=== PATIENT | male | born 1990 | race African-American/Black ===

== ENCOUNTER 2018-09-07 21:21 | Emergency (ER) | payer OTHER ==
[2018-09-07 21:21] VITALS: BP 136/74
--- NOTE | 2018-09-07 21:28 | ED.ADGEN ---
Adult General Chief Complaint Chief Complaint "..I don't have any symptoms.. but I ve been having sex with my girlfriend..Ruby Musa.. and she has Trichomonas... 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 Patient denies any penile discharge. Patient denies any history immunosuppression. No recent travel. No over seas recent deployments. Pt. up-to-date with vaccinations. Patient normally healthy. Patient gets yearly HIV testing. All previous tested been negative. Pt. requesting treatment for possible STD so that they do not reinfect each other during sexual intercourse. Review of Systems Review of Systems Constitutional: Denies fever or chills [] Eyes: Denies change in visual acuity, redness, or eye pain [] HENT: Denies nasal congestion or sore throat [] Respiratory: Denies cough or shortness of breath [] Cardiovascular: No additional information not addressed in HPI [] GI: Denies abdominal pain, nausea, vomiting, bloody stools or diarrhea [] : Denies dysuria or hematuria [] Musculoskeletal: Denies back pain or joint pain [] Integument: Denies rash or skin lesions [] Neurologic: Denies headache, focal weakness or sensory changes [] Endocrine: Denies polyuria or polydipsia [] All other systems were reviewed and found to be within normal limits, except as documented in this note. Family History Family History Noncontributory Current Medications Current Medications Current Medications Medications (Trade) Dose Ordered Sig/Bing Start Time Stop Time Status Last Admin Dose Admin Azithromycin (Zithromax) 1,000 mg 1X ONCE 09/07/18 22:00 09/07/18 22:01 DC 09/07/18 22:29 1,000 MG Ceftriaxone Sodium (Rocephin Im) 1 gm 1X ONCE 09/07/18 22:00 09/07/18 22:01 DC 09/07/18 22:30 1 GM Lidocaine HCl 20 ml 1X ONCE 09/07/18 23:00 09/07/18 23:01 DC Metronidazole (Flagyl) 2,000 mg 1X ONCE 09/07/18 22:00 09/07/18 22:01 DC 09/07/18 22:29 2,000 MG Ondansetron HCl (Zofran Odt) 8 mg 1X ONCE 09/07/18 22:00 09/07/18 22:01 DC 09/07/18 22:30 8 MG Allergies Allergies Allergies Coded Allergies Type Severity Reaction Last Updated Verified No Known Drug Allergies 09/07/18 No Physical Exam Physical Exam Constitutional: Well developed, well nourished, no acute distress, non-toxic appearance. [] HENT: Normocephalic, atraumatic, bilateral external ears normal, oropharynx moist, no oral exudates, nose normal. [] Eyes: PERRLA, EOMI, conjunctiva normal, no discharge. [] Neck: Normal range of motion, no tenderness, supple, no stridor. [] Cardiovascular:Heart rate regular rhythm, no murmur [] Lungs & Thorax: Bilateral breath sounds clear to auscultation [] Abdomen: Bowel sounds normal, soft, no tenderness, no masses, no pulsatile masses. [] Skin: Warm, dry, no erythema, no rash. [] Back: No tenderness, no CVA tenderness. [] Extremities: No tenderness, no cyanosis, no clubbing, ROM intact, no edema. [] Neurologic: Alert and oriented X 3, normal motor function, normal sensory function, no focal deficits noted. [] Psychologic: Affect normal, judgement normal, mood normal. [] Current Patient Data Lab Results Laboratory Tests Test 09/07/18 21:45 Urine Collection Type Unknown Urine Color Yellow Urine Clarity Clear Urine pH 6.5 Urine Specific Energy 1.025 Urine Protein Neg (NEG-TRACE) Urine Glucose (UA) Neg mg/dL (NEG) Urine Ketones (Stick) Trace mg/dL (NEG) Urine Blood Neg (NEG) Urine Nitrite Neg (NEG) Urine Bilirubin Neg (NEG) Urine Urobilinogen Dipstick 0.2 mg/dL (0.2 mg/dL) Urine Leukocyte Esterase Neg (NEG) Urine RBC 0 /HPF (0-2) Urine WBC Occ /HPF (0-4) Urine Squamous Epithelial Cells Occ /LPF Urine Bacteria 0 /HPF (0-FEW) Urine Mucus Slight /LPF EKG EKG [] Radiology/Procedures Radiology/Procedures [] Course & Med Decision Making Course & Med Decision Making Pertinent Labs and Imaging studies reviewed. (See chart for details). Patient follow-up pending cultures. Patient follow-up primary care. Patient take Keflex 500 mg 3 times a day. Patient return if any concerns. Should have retesting to ensure clearing of infection. [] Final Impression Final Impression 1. Exposure to STD[] Dragon Disclaimer Dragon Disclaimer This electronic medical record was generated, in whole or in part, using a voice recognition dictation system. Discharge Summary Visit Information Final Diagnosis Problems Medical Problems: (1) STD exposure Status: Acute Brief Hospital Course Allergies Allergies Coded Allergies Type Severity Reaction Last Updated Verified No Known Drug Allergies 09/07/18 No Lab Results Laboratory Tests Test 09/07/18 21:45 Urine Collection Type Unknown Urine Color Yellow Urine Clarity Clear Urine pH 6.5 Urine Specific Energy 1.025 Urine Protein Neg (NEG-TRACE) Urine Glucose (UA) Neg mg/dL (NEG) Urine Ketones (Stick) Trace mg/dL (NEG) Urine Blood Neg (NEG) Urine Nitrite Neg (NEG) Urine Bilirubin Neg (NEG) Urine Urobilinogen Dipstick 0.2 mg/dL (0.2 mg/dL) Urine Leukocyte Esterase Neg (NEG) Urine RBC 0 /HPF (0-2) Urine WBC Occ /HPF (0-4) Urine Squamous Epithelial Cells Occ /LPF Urine Bacteria 0 /HPF (0-FEW) Urine Mucus Slight /LPF Brief Hospital Course 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 Discharge Information Condition at Discharge: Stable Disposition/Orders: D/C to Home Dischare Medications Current Medications Ceftriaxone Sodium (Rocephin Im) 1 gm 1X ONCE IM Last administered on 09/07/18at 22:30; Admin Dose 1 GM; Start 09/07/18 at 22:00; Stop 09/07/18 at 22:01; Status DC Ondansetron HCl (Zofran Odt) 8 mg 1X ONCE PO Last administered on 09/07/18at 22:30; Admin Dose 8 MG; Start 09/07/18 at 22:00; Stop 09/07/18 at 22:01; Status DC Azithromycin (Zithromax) 1,000 mg 1X ONCE PO Last administered on 09/07/18at 22:29; Admin Dose 1,000 MG; Start 09/07/18 at 22:00; Stop 09/07/18 at 22:01; Status DC Metronidazole (Flagyl) 2,000 mg 1X ONCE PO Last administered on 09/07/18at 22:29; Admin Dose 2,000 MG; Start 09/07/18 at 22:00; Stop 09/07/18 at 22:01; Status DC Lidocaine HCl 20 ml STK-MED ONCE .ROUTE ; Start 09/07/18 at 22:32; Stop 09/07/18 at 22:33; Status DC Lidocaine HCl 20 ml 1X ONCE IJ ; Start 09/07/18 at 23:00; Stop 09/07/18 at 23:01; Status DC Active Scripts Active Keflex (Cephalexin) 500 Mg Capsule 500 Mg PO TID Joseph Disclaimer This chart was dictated in whole or in part using Voice Recognition software in a busy, high-work load, and often noisy Emergency Department environment. It may contain unintended and wholly unrecognized errors or omissions. LINDA SANDHU MD September 07, 2018 21:28
[2018-09-07] MEDS ORDERED: CEPH-264 PO (21:34)
[2018-09-07] MEDS ORDERED: cefTRIAXone IM 1 GM VIAL IM ONE (22:00)
[2018-09-07] MEDS ORDERED: ONDANSETRON ODT 4 MG TAB.RAPDIS PO ONE (22:00)
[2018-09-07] MEDS ORDERED: AZITHROMYCIN 250 MG TABLET. PO ONE (22:00)
[2018-09-07] MEDS ORDERED: metroNIDAZOLE 500 MG TABLET PO ONE (22:00)
[2018-09-07 22:11] LABS: BACTERIA,URINE 0 /HPF (0-FEW); BILIRUBIN,URINE NEG (NEG); CLARITY,URINE CLEAR; COLOR,URINE YELLOW; GLUCOSE,URINE NEG (NEG); NITRITE,URINE NEG (NEG); RBC,URINE 0 /HPF (0-2); SQUAMOUS EPITHELIAL CELL,UR OCC /LPF; UROBILINOGEN,URINE 0.2 mg/dL (0.2 mg/dL); WBC,URINE OCC /HPF (0-4)
[2018-09-07] MEDS ORDERED: LIDOCAINE 1% Multi-Dose 20 ML VIAL. ONE (22:32)
[2018-09-07] MEDS ORDERED: LIDOCAINE 1% Multi-Dose 20 ML VIAL. IJ ONE (23:00)
== END 2018-09-07 23:05 | disposition home or self-care (01) ==
LOC: ER 21:21
DX: Z20.2 Contact with and (suspected) exposure to infections with a predominantly sexual mode of transmission (principal)
CPT/HCPCS: 81001; 96372; 99284; J0456; J0696; Q0162